=== PATIENT | male | born 1945 | race Caucasian/White ===

== ENCOUNTER → 2017-11-29 12:58 | Outpatient (CLI) | payer MEDICARE, BC, SELFPAY ==
--- NOTE | 2017-11-29 | DI.RAD.S_ITS ---
PROCEDURE: XR HAND RT MIN 3V INDICATIONS: RIGHT HAND PAIN TECHNIQUE: 3 views of the hand(s) acquired. COMPARISON: [facility], , HAND 3V LEFT, 02/24/2008, 19:23. FINDINGS: Bones: No fractures or dislocations but there is moderately severe degenerative osteoarthritic change at the base of the first metacarpal. Inter-phalangeal degenerative osteoarthritis also is present distally but no erosive arthritis or trauma is seen.. Carpal bones are normally aligned. No suspicious bony lesions. Soft tissues: No suspicious soft tissue calcifications. 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 Mild to moderate osteoarthritis is seen elsewhere without erosive arthritis or trauma. Dictated by: Bubba Mclain M.D. on 11/29/2017 at 14:58 Approved by: Bubba Mclain M.D. on 11/29/2017 at 14:58
== END ==
PROVIDERS: Family Provider Family Medicine; PCP Family Medicine; Visit Provider Family Medicine
DX: M79.641 Pain in right hand (principal); M19.041 Primary osteoarthritis, right hand
CPT/HCPCS: 73130

== ENCOUNTER → 2018-02-10 08:46 | Outpatient (CLI) | payer MEDICARE, BC, SELFPAY | PROVIDERS: Family Provider Family Medicine; PCP Family Medicine; Visit Provider Orthopaedic Surgery | DX: G56.01 Carpal tunnel syndrome, right upper limb (principal); M18.11 Unilateral primary osteoarthritis of first carpometacarpal joint, right hand | CPT/HCPCS: 95885; 95886; 95912 ==

== ENCOUNTER → 2018-03-03 09:51 | Outpatient (CLI) | payer MEDICARE, BC, SELFPAY ==
[2018-03-03 10:40] LABS: Add Manual Diff / Slide Review NO; Basophils Percent Auto 0.6 % (0-2); Eosinophils Percent Auto 4.6 % (2-4); Hematocrit 41.4 % (41-53); Hemoglobin 14.2 g/dL (13.5-17.5); Lymphocytes Percent Auto 37.7 % (25-40); Mean Corpuscular HGB Conc 34.3 % (30-36); Mean Corpuscular Hemoglobin 32.1 PG (26-34); Mean Corpuscular Volume 93.7 fL (80-100); Monocytes Percent Auto 7.4 % (3-14); Neutrophils Absolute Auto 4700 /uL (1500-7000); Neutrophils Percent Auto 49.7 % (50-75); Platelet Count 227 X10^3/uL (150-400); Red Blood Cell Count 4.42 X10^6/uL (4.5-5.9); Red Cell Distribution Width 13.3 % (11.6-14.8); White Blood Cell Count 9.5 X10^3/uL (4.5-11.0)
[2018-03-03 10:47] LABS: Alanine Aminotransferase 22 IU/L (21-72); Albumin 4.5 g/dL (3.5-5.0); Albumin Globulin Ratio 1.5 (1.0-2.8); Alkaline Phosphatase 70 U/L (38-126); Aspartate Aminotransferase 24 IU/L (17-59); BUN Creatinine Ratio 21.4 (6-22); Bilirubin Total 0.6 mg/dL (0.2-1.3); Blood Urea Nitrogen 15 mg/dL (9-20); Calcium 9.2 mg/dL (8.4-10.2); Carbon Dioxide 26 mmol/L (22-32); Chloride 103 mmol/L (98-107); Estimated Glomerular Filt Rate > 60.0 mL/min (>60); Globulin 3.1 g/dL (1.7-4.1); Glucose 102 mg/dL (80-110); HEMOLYSIS < 15 (0-50); Potassium 3.9 mmol/L (3.4-5.1); Sodium 141 mmol/L (137-145); Total Protein 7.6 g/dL (6.3-8.2)
[2018-03-03 11:57] LABS: Hep C Virus Ab w/Reflex Quant NEGATIVE s/c (NEGATIVE)
== END ==
PROVIDERS: Family Provider Family Medicine; PCP Family Medicine; Visit Provider Orthopaedic Surgery
DX: G56.01 Carpal tunnel syndrome, right upper limb (principal); M18.11 Unilateral primary osteoarthritis of first carpometacarpal joint, right hand; Z01.818 Encounter for other preprocedural examination
CPT/HCPCS: 36415; 80053; 85025; 86803; 93005

== ENCOUNTER → 2018-08-05 09:32 | Outpatient (CLI) | payer MEDICARE, BC, SELFPAY | PROVIDERS: PCP Family Medicine; Visit Provider Orthopaedic Surgery | DX: Z01.812 Encounter for preprocedural laboratory examination (principal); Z01.810 Encounter for preprocedural cardiovascular examination | CPT/HCPCS: 93005 ==

== ENCOUNTER → 2018-08-09 12:42 | Outpatient (CLI) | payer MEDICARE, BC, SELFPAY | PROVIDERS: PCP Family Medicine; Visit Provider Orthopaedic Surgery | DX: Z01.810 Encounter for preprocedural cardiovascular examination (principal) | CPT/HCPCS: 93005 ==

== ENCOUNTER 2019-11-27 18:42 | Emergency (ER) | payer MEDICARE, BC, SELFPAY ==
[2019-11-27 18:51] VITALS: BP 143/64; PULSE 59; RESP 14; TEMP 36.8; O2SAT 99
--- NOTE | 2019-11-27 19:10 | ED.SKABFB ---
HPI - Skin/Abscess/Foreign Bdy <TRENTON Rose - Last Filed: 11/27/19 19:27> General Chief complaint: Skin/Abscess/Foreign Body Stated complaint: Bug Bite On Left Forearm Time Seen by Provider: 11/27/19 18:50 Source: patient Mode of arrival: Ambulatory History of Present Illness HPI narrative: 74yo male with history of smoking and ADHD, presents to the ED for a probable bug bite to his left arm, patient states he is unsure when this happened, he noticed a small bug bite on his arm about an hour ago. Over the course of the hour the by has swollen significantly. He states he is allergic to bees but does not believe he got stung. Patient states the area is very itchy, he took to antihistamine pills does help some but not significantly. He was worried due to rapid swelling. Patient denies any other symptoms such as difficulty breathing, swollen lips, swollen tongue, nausea, vomiting, diarrhea, chest pain, shortness of breath, or any other concerns. Patient denies any other health problems. Related Data Home Medications Medication Instructions Recorded Confirmed alprazolam 0.5 mg tablet 0.5 mg PO BID PRN tab 09/05/19 10/31/19 cholecalciferol (vitamin D3) 50 50 mcg PO DAILY 09/05/19 10/31/19 mcg (2,000 unit) capsule multivitamin,[id number] 1 tab PO DAILY 09/05/19 10/31/19 Previous Rx's Medication Instructions Recorded hydrocodone-acetaminophen 0 tab PO Q6HP PRN #15 tab 02/14/16 guanfacine 4 mg tablet,extended 4 mg PO QPM #30 tab 10/31/19 release 24 hr Allergies Allergy/AdvReac Type Severity Reaction Status Date / Time Penicillins [PENICILLINS] Allergy Unknown CHILDHOOD Verified 10/31/19 10:51 RX- rash Review of Systems <TRENTON Rose - Last Filed: 11/27/19 19:27> Review of Systems Narrative: REVIEW OF SYSTEMS: GENERAL: Denies fever or chills. HENT: Denies head trauma. CARDIOVASCULAR: Denies syncope. MUSCULOSKELETAL: Denies weakness, or deformities. INTEGUMENTARY: Complains of bug bite and swelling to inside of left forearm, see HPI. NEURO: Denies numbness or tingling. Patient History <TRENTON Rose - Last Filed: 11/27/19 19:27> Medical History No significant medical problems (Acute) Social History Smoking Status: Never smoker Smoking Status: Never smoker Exam <TRENTON Rose - Last Filed: 11/27/19 19:27> Initial Vital Signs Initial Vital Signs: Vital Signs Temperature 98.2 F 11/27/19 18:51 Pulse Rate 59 L 11/27/19 18:51 Respiratory Rate 14 11/27/19 18:51 Blood Pressure 143/64 H 11/27/19 18:51 Pulse Oximetry 99 11/27/19 18:51 PHYSICAL EXAMINATION: GENERAL: Well groomed, alert, and cooperative. Answers questions promptly and appropriately. Vital signs noted. HENT: Normocephalic, atraumatic. RESPIRATORY: Normal respiratory rate, trachea midline, airway patent. No stridor, nasal flaring or accessory muscle use. Lungs clear. MUSCULOSKELETAL: Normal gait and coordination. Equal tone and mass bilaterally. EXTREMITIES: CMS intact. Moves all extremities. SKIN: Warm, dry, soft, appropriate color for ethnicity. A 16 cm in diameter area of erythema and swelling, appears inflammatory versus infectious. No fluctuation. A less than 1 cm puncture wound noted in the middle of area, no necrosis or discharge. NEURO: Alert and Oriented X 3. Good coordination. PSYCH: Appropriate affect and mood. <Darryl Contreras DO - Last Filed: 11/28/19 03:53> Initial Vital Signs Initial Vital Signs: Vital Signs Temperature 98.2 F 11/27/19 18:51 Pulse Rate 59 L 11/27/19 18:51 Respiratory Rate 14 11/27/19 18:51 Blood Pressure 143/64 H 11/27/19 18:51 Pulse Oximetry 99 11/27/19 18:51 Course <TRENTON Rose - Last Filed: 11/27/19 19:27> Orders Ordered: Discontinued Medications Dexamethasone (Decadron) 10 mg PO NOW ONE Stop: 11/27/19 19:11 Last Admin: 11/27/19 19:21 Dose: 10 mg Documented by: WILFRED Vital Signs Vital signs: Vital Signs - 8 hr 11/27/19 18:51 Temperature 98.2 F Pulse Rate 59 L Respiratory Rate 14 Blood Pressure 143/64 H Pulse Oximetry 99 <Darryl Contreras DO - Last Filed: 11/28/19 03:53> Orders Ordered: Discontinued Medications Dexamethasone (Decadron) 10 mg PO NOW ONE Stop: 11/27/19 19:11 Last Admin: 11/27/19 19:21 Dose: 10 mg Documented by: WILFRED Vital Signs Vital signs: Vital Signs - 8 hr 11/27/19 18:51 Temperature 98.2 F Pulse Rate 59 L Respiratory Rate 14 Blood Pressure 143/64 H Pulse Oximetry 99 MDM - Skin/Abscess/Foreign Bdy <TRENTON Rose - Last Filed: 11/27/19 19:27> Medical Records Attestation: I reviewed the patient's medical records. Lab Data Attestation: I reviewed the patient's lab results. MDM Narrative Medical decision making narrative: History and examination reveal a local reaction to a possible bug bite. No concerns for systemic reaction given the lack of respiratory involvement, no hives, or facial swelling. Patient was given dexamethasone due to aggressive swelling in the past hour. He was encouraged to apply hydrocortisone cream to the area and taking antihistamines. Return precautions given for new or worsening symptoms. Patient agreed to plan of care verbalized understanding. Discharge Plan Departure Patient Disposition: Home Clinical Impression: Insect bite of elbow with local reaction Qualifiers: Encounter type: initial encounter Laterality: left Qualified Code(s): S50.362A - Insect bite (nonvenomous) of left elbow, initial encounter Discharge Date/Time: 11/27/19 19:24 Activity Restrictions/Additional Instructions: Thank you for entrusting me with your care today. As discussed, we have given you a dose of steroids today in the emergency department as I suspect you had an allergic reaction to a bug bite. I recommend you continue to take antihistamines over the next few days. Apply ice to the area and 1% hydrocortisone cream. Return emergency department for any new or worsening symptoms such as increased swelling, pus, high fevers, or any other concerns. Prescriptions: No Action alprazolam [Xanax] 0.5 mg tablet 0.5 mg PO BID PRNRF: 0 cholecalciferol (vitamin D3) 50 mcg (2,000 unit) capsule 50 mcg PO DAILY RF: 0 Complete Multivitamin Tablet 1 tab PO DAILY RF: 0 guanfacine 4 mg tablet extended release 24 hr 4 mg PO QPM Qty: 30 RF: 1 hydrocodone-acetaminophen 5 MG/325 MG tablet 0 tab PO Q6HP PRNQty: 15 RF: 0 Referrals: Jamel Chowdary MD [Primary Care Provider] - <Darryl Contreras DO - Last Filed: 11/28/19 03:53> Cosign ED Attending Cosignature Attestation: I was immediately available in the department for consultation. This documentation has been reviewed and I agree with assessment and plan. Supervised by Darryl Contreras DO
[2019-11-27] MEDS: DEXAMETHASONE 10 MG/ML VIAL PO (19:21)
== END 2019-11-27 19:24 | disposition home or self-care (01) ==
PROVIDERS: Emergency Provider Nurse Practitioner; PCP Internal Medicine
DX: S50.362A Insect bite (nonvenomous) of left elbow, initial encounter (principal)
CPT/HCPCS: 99283; J1100

== ENCOUNTER 2021-04-27 13:31 | Emergency (ER) | payer MEDICARE, BC, SELFPAY ==
[2021-04-27 13:39] VITALS: BP 137/79; PULSE 59; RESP 20; TEMP 36.7; O2SAT 99
[2021-04-27 14:46] VITALS: O2SAT 98
[2021-04-27 14:47] VITALS: BP 125/63; PULSE 58; O2SAT 96
--- NOTE | 2021-04-27 15:13 | ED_ITS ---
HPI - Back Pain/Injury General Chief Complaint: Back Pain/Injury Stated Complaint: leg spasms Time Seen by Provider: 04/27/21 14:40 Source: patient and family Mode of arrival: Ambulatory Limitations: no limitations History of Present Illness HPI Narrative: This is a 75-year-old male comes emergency department complaint of low back pain. Patient has history of chronic degenerative disc disease, he has had a cervical fusion and low back surgery in 1996. Patient has had persistent back issues but recently his lower back has been significantly worse. He can typically stretch it out but has not been able to the last couple days. He denies any radiation of pain down his legs. He denies any new loss of bowel or bladder control. No numbness or tingling. He does not appreciate any weakness. Movement makes his pain worse. Patient has a back surgeon, Dr. Olivo and telling him he plans to follow-up with. He comes today seeking pain management assistance. He has been taking [place] 1 tablet every 6 hours today without improvement. He is on medications for PTSD including quad facing, Xanax, he takes gabapentin, Vicodin as needed and has taken indomethacin which he finds helpful. He allergic to penicillin. Tobacco, alcohol or illicit. Dr. Chowdary is his PCP. Related Data Home Medications Medication Instructions Recorded Confirmed alprazolam 0.5 mg tablet (Xanax) 0.5 mg PO BID PRN tab 09/05/19 01/01/21 hydrocodone-acetaminophen [Vicodin] PO PRN 10/15/20 01/01/21 indomethacin 25 mg capsule 25 mg PO TID PRN 10/15/20 01/01/21 Previous Rx's Medication Instructions Recorded guanfacine 1 mg tablet 1 mg PO BEDTIME #90 tab 02/13/21 guanfacine 4 mg tablet,extended 4 mg PO QPM #90 tab 02/13/21 release 24 hr gabapentin 300 mg capsule 300 mg PO TID PRN #90 cap 03/18/21 oxycodone 5 mg tablet 5 mg PO QID PRN #10 tab 04/27/21 prednisone 20 mg tablet 40 mg PO DAILY 5 Days #10 tab 04/27/21 Allergies Allergy/AdvReac Type Severity Reaction Status Date / Time Penicillins [PENICILLINS] Allergy Unknown CHILDHOOD Verified 01/01/21 10:47 RX- rash Review of Systems Review of Systems ROS Unobtainable: All systems reviewed & are unremarkable except as noted in HPI and below Patient History Medical History (Updated 04/27/21 @ 15:47 by Agnieszka Mcclain DO) No significant medical problems Social History Smoking Status: Never smoker Smoking Status: Never smoker Exam Narrative Exam Narrative: GENERAL: Alert and oriented x three, male in mild distress. HEENT: Head normocephalic, atraumatic, EOMI, pupils reactive, face symmetric, moist mucous membranes NECK: Supple, full range of motion CARDIOVASCULAR: Regular rate and rhythm without murmurs, rubs or gallops. RESPIRATORY: Breath sounds equal bilaterally, no wheezes rales or rhonchi. ABDOMEN: Soft, nontender. Normoactive bowel sounds all 4 quadrants. No guarding or rebound, rigidity, no mass : No CVA tenderness BACK: No cervical, thoracic or lumbar vertebral point tenderness. Patient has healed midline incision in his lower back consistent with prior surgery. Patient has some mild tenderness of the bilateral low back above the ASIS region. Has slightly decreased range of motion with standing patient has significant worsening of extension of his back, he is mildly worsened with flexion. As well as rotation and side bending. Patient is able to stand off the bed but uncomfortable. Patient's gait is normal. Rectal exam is deferred. Muscle strength is 5/5 in lower extremities, DTRs are 2/4 and lower extremities. Dorsalis pedis and tibialis pulses are 2+ and lower extremities. Sensation is intact in the lower extremities. EXTREMITIES: Normal range of motion, no clubbing or edema. Neurovascularly intact NEUROLOGICAL: Cranial nerves II through XII grossly intact. Moving all extremities SKIN: Warm, dry, no petechiae, no rashes or lesions to the back. Initial Vital Signs Initial Vital Signs: Vital Signs Temperature 98.1 F 04/27/21 13:39 Pulse Rate 59 L 04/27/21 13:39 Respiratory Rate 20 04/27/21 13:39 Blood Pressure 137/79 04/27/21 13:39 Pulse Oximetry 99 04/27/21 13:39 Course Orders Ordered: Discontinued Medications Oxycodone/Acetaminophen (Oxycodone/Acetaminophen 5/325 Tablet) 2 tab PO NOW ONE Stop: 04/27/21 15:39 Last Admin: 04/27/21 16:00 Dose: 2 tab Documented by: SIDDHARTHA Oxycodone/Acetaminophen (Oxycodone/Apap 5/325 Prepack) 1 bottle MISC SEEINSTR ONE Stop: 04/27/21 16:00 Last Admin: 04/27/21 16:01 Dose: 1 bottle Documented by: SIDDHARTHA Vital Signs Vital signs: Vital Signs - 8 hr 04/27/21 13:39 04/27/21 14:46 04/27/21 14:47 Temperature 98.1 F Pulse Rate 59 L 58 L Respiratory Rate 20 Blood Pressure 137/79 125/63 Pulse Oximetry 99 98 96 04/27/21 15:40 04/27/21 16:00 04/27/21 16:01 Temperature Pulse Rate 66 61 62 Respiratory Rate Blood Pressure 124/65 120/63 Pulse Oximetry 96 96 96 MDM - Back Pain/Injury MDM Narrative Medical decision making narrative: This is a 75-year-old male with acute on chronic low back pain with known degenerative disc disease in prior surgery. He has had slowly worsening symptoms that have acutely worsened lately. He has follow-up planned and defers imaging today. He does not have any acute neurologic changes red flag symptoms. You will and for pain management patient to follow-up with red flag symptoms//return precautions discussed. Discharge Plan Departure Patient Disposition: Home Clinical Impression: Low back pain Instructions: DI for Low Back Pain Activity Restrictions/Additional Instructions: Follow-up with Dr. Olivo as well as your primary care physician. You may take oxycodone 1-2 tablets every 6 hours as needed for pain. This medication can make you sleepy do not drive, perform hazardous activities or make any major decisions while taking it. This medication will make you constipated please take a stool softener once to twice daily until stools are soft and regular. You can take Tylenol up to a 1000 mg every 8 hours as needed with oxycodone. Do not take [place] with this medication. You may take prednisone daily until gone. You may continue other home medications as prescribed. Prescription sent to [facility] [place] pharmacy. Please return for fevers, rapidly worsening symptoms, loss of bowel or bladder control, new weakness or loss of sensation in extremities or other new or concerning symptoms. Prescriptions: New oxycodone 5 mg tablet 5 mg PO QID PRN (Reason: pain) Qty: 10 0RF prednisone 20 mg tablet 40 mg PO DAILY 5 Days Qty: 10 0RF No Action hydrocodone-acetaminophen [Vicodin] PO PRN0RF alprazolam [Xanax] 0.5 mg tablet 0.5 mg PO BID PRN0RF indomethacin 25 mg capsule 25 mg PO TID PRN0RF Rx Instructions: administer with food or milk guanfacine 1 mg tablet 1 mg PO BEDTIME Qty: 90 0RF guanfacine 4 mg tablet extended release 24 hr 4 mg PO QPM Qty: 90 0RF gabapentin 300 mg capsule 300 mg PO TID PRN (Reason: anxiety/pain) Qty: 90 2RF Referrals: Jamel Chowdary MD [Primary Care Provider] -
[2021-04-27 15:40] VITALS: BP 124/65; PULSE 66; O2SAT 96
[2021-04-27 16:00] VITALS: PULSE 61; O2SAT 96
[2021-04-27] MEDS: OXYCODONE/ACETAMINOPHEN 5/325 TABLET 2 TAB PO (16:00)
[2021-04-27 16:01] VITALS: BP 120/63; PULSE 62; O2SAT 96
[2021-04-27] MEDS: OXYCODONE/APAP 5/325 PREPACK 1 BOTTLE MISC (16:01)
== END 2021-04-27 15:55 | disposition home or self-care (01) ==
PROVIDERS: Emergency Provider Emergency Medicine; PCP Internal Medicine
DX: G89.29 Other chronic pain (principal); M54.50 Low back pain, unspecified
CPT/HCPCS: 99283

== ENCOUNTER → 2021-05-20 12:36 | Outpatient (CLI) | payer MEDICARE, BC, SELFPAY ==
--- NOTE | 2021-05-20 | DI.RAD.S_ITS ---
PROCEDURE: XR LUMBAR SPINE 2-3V INDICATIONS: LOW BACK PAIN TECHNIQUE: 3 views of the lumbar spine were acquired. COMPARISON: None. FINDINGS: Bones: 5 [id number] vertebrae are present. There is normal bony alignment. No vertebral body compression fractures. No suspicious bony lesions. There is central vertebral body height loss of L1 with convexity of the superior and inferior endplates. Anterior osteophytes are seen at multiple levels. There is facet arthrosis in the lower lumbar spine. Disc space narrowing at L4-5 and L5-S1. There is leftward curvature of the lumbar spine. The sacroiliac joints have mild degenerative changes. Soft tissues: Overlying bowel gas pattern is normal. No suspicious soft tissue calcifications. IMPRESSION: 1. Multilevel degenerative changes and facet arthrosis. 2. Disc space narrowing at L4-5 and L5-S1 consistent with degenerative disc disease. Dictated by: Harshil Richardson M.D. on 05/20/2021 at 15:13 Approved by: Harshil Richardson M.D. on 05/20/2021 at 15:16
== END ==
PROVIDERS: PCP Internal Medicine; Referring Provider Internal Medicine; Visit Provider Internal Medicine
DX: M47.816 Spondylosis without myelopathy or radiculopathy, lumbar region (principal); M54.50 Low back pain, unspecified
CPT/HCPCS: 72100

== ENCOUNTER → 2022-11-19 12:43 | Outpatient (CLI) | payer MEDICARE, BC, SELFPAY ==
--- NOTE | 2022-11-19 | DI.RAD.S_ITS ---
PROCEDURE: XR CHEST 2V INDICATIONS: COUGH TECHNIQUE: 2 views of the chest were acquired. COMPARISON: [facility], , CHEST 2 VIEW, 04/03/2009, 13:29. FINDINGS: Surgical changes and devices: Surgical hardware in visualized lower cervical spine is seen. Lungs and pleura: Increased bronchovascular markings in bilateral hilar region are seen with ill-defined increased opacity in right infrahilar region. Hyperinflation is also noted. No pleural effusions or pneumothorax. Mediastinum: Mediastinal contours are normal. Heart size is normal. Bones and chest wall: No suspicious bony abnormalities. Soft tissues appear unremarkable. IMPRESSION: Finding may represent small bilateral perihilar and right infrahilar infiltrates versus atelectasis. No pleural effusion or pneumothorax. COPD. Dictated by: Jam Mandujano M.D. on 11/19/2022 at 15:44 Approved by: Jam Mandujano M.D. on 11/19/2022 at 15:44
== END ==
PROVIDERS: PCP Internal Medicine; Referring Provider Internal Medicine; Visit Provider Internal Medicine
DX: J44.9 Chronic obstructive pulmonary disease, unspecified (principal); R06.00 Dyspnea, unspecified
CPT/HCPCS: 71046

== ENCOUNTER → 2023-01-08 08:37 | Outpatient (CLI) | payer MEDICARE, BC, SELFPAY ==
--- NOTE | 2023-01-08 | DI.NM.S_ITS ---
PROCEDURE: NM JESSICA PERF SPECT R&S PHARM Rest and pharmacological stress myocardial perfusion SPECT with gated imaging and ejection fraction RADIOPHARMACEUTICAL: 12.7 mCi Tc-99m tetrafosmin IV at rest and 26.3 mCi Tc-99m tetrafosmin IV at peak effect of pharmacological stress. [id number] was performed. INDICATIONS: Other forms of dyspnea TECHNIQUE: Radiopharmaceutical was injected at peak stress test, and also at rest. SPECT images were obtained. SPECT myocardial perfusion images were displayed in short axis, horizontal long axis, and vertical long axis views. Gated images were reviewed using [employer] software. COMPARISON: None. CARDIAC STRESS: A pharmacologic stress test was performed under the supervision of an attending staff, using an infusion of lexiscan 0.4mg IV X1. Hemodynamic data: There is normal blood pressure and heart rate response to pharmacologic stress. Symptoms: The patient denied anginal chest pain. Aminophylline: none EKG: No diagnostic changes of ischemia; occasional PVCs with lexiscan. FINDINGS: Raw data: There is good myocardial uptake of radiotracer. No significant motion artifacts. Guvu-gm-[id number] ratio is 0.31 (normal is less than 0.38 for tetrafosmin tracer). Left ventricle function: Gated images demonstrate normal left ventricular wall thickening. No segmental wall motion abnormalities. No transient ischemic dilation; TID is 0.88 (normal less than 1.3). Left ventricle resting end diastolic volume is 137mL. Left ventricle stress ejection fraction is 76%; normal range is above 45%. Myocardial perfusion: Mildly intense fixed inferior wall defect extending to the apex that essentially resolves with prone imaging, suggesting artifact but old small non-transmural infarction can't be definitively excluded. No ischemia. IMPRESSION: Low risk, probably normal pharmaceutical nuclear stress test 1) Mildly intense fixed inferior wall defect extending to the apex that essentially resolves with prone imaging, suggesting artifact but old small non-transmural infarction can't be definitively excluded. No ischemia. 2) Normal left ventricular size, wall motion, and systolic function (EF post stress 76%). 3) No ST changes with lexiscan. 4) No angina during the study. 5) No prior nuclear stress test available for comparison. Dictated by: Mitchell Contreras MD on 01/08/2023 at 16:46 Approved by: Mitchell Contreras MD on 01/08/2023 at 16:49
== END ==
PROVIDERS: PCP Internal Medicine; Referring Provider Internal Medicine; Visit Provider Internal Medicine
DX: R06.09 Other forms of dyspnea (principal)
CPT/HCPCS: 78452; 93017; A9502; J2785

== ENCOUNTER → 2023-01-29 11:43 | Outpatient (CLI) | payer MEDICARE, BC, SELFPAY | PROVIDERS: PCP Internal Medicine; Referring Provider Internal Medicine; Visit Provider Internal Medicine | DX: R06.02 Shortness of breath (principal) | CPT/HCPCS: 94060 ==